=== PATIENT | female | born 1980 | race American Indian/Alaskan Native ===

== ENCOUNTER 2017-03-15 19:03 | Emergency (ER) | payer OTHER ==
[2017-03-15 20:37] LABS: Urine Drugs of Abuse Note Disclamer
[2017-03-15 20:46] LABS: Bilirubin,Urine NEG (Negative); Blood,Urine NEG (Negative); Ketones,Urine NEG (Negative); Leukocyte Esterase,Urine SM (Negative); Mucus,Urine FEW /HPF; Nitrite,Urine NEG (Negative); Protein,Urine <15 mg/dL mg/dL (Negative); Urobilinogen,Urine < 2.0 mg/dL (<2.0)
[2017-03-15 20:47] LABS: Basophils % (Auto) 0.2 % (0.0-1.8); Eosinophils % (Auto) 0.4 % (0.0-4.3); Hematocrit 39.1 % (30.3-42.9); Hemoglobin 12.8 gm/dl (10.1-14.3); Mean Corpuscular HGB Conc 33 % (30-34); Mean Corpuscular Hemoglobin 29 pg (28-32); Mean Corpuscular Volume 89 fl (79-97); Platelet Count 237 K/mm3 (140-440); Red Cell Distribution Width 14.8 % (13.2-15.2); White Blood Count 16.8 K/mm3 (4.5-11.0)
[2017-03-15 21:05] LABS: Anion Gap 21 mmol/L; BUN/Creatinine Ratio 12.85; Blood Urea Nitrogen 9 mg/dL (7-17); Calcium 10.1 mg/dL (8.4-10.2); Carbon Dioxide 21 mmol/L (22-30); Glucose 101 mg/dL (65-100); Potassium 3.7 mmol/L (3.6-5.0); Sodium 139 mmol/L (137-145)
[2017-03-16] MEDS ORDERED: ANTIVERT PO ONE (00:14)
[2017-03-16] MEDS ORDERED: NACL 0.9% 1000 ML 1,000 ML IV ONE (00:32)
--- NOTE | 2017-03-16 00:43 | Emergency Department Report ---
ED Dizziness HPI - General Chief Complaint: Dizziness Stated Complaint: LIGHTHEADED/ NEAR SYNCOPE Time Seen by Provider: 03/15/17 23:55 Source: patient Mode of arrival: Ambulatory Limitations: No Limitations - History of Present Illness Initial Comments: 36-year-old female with no significant past medical history presents to Hospital complaining of lightheadedness for last few days. Patient also complains of loss of energy, feeling drained, and left ear discomfort. Patient feels like her left ear is blocked that she needs to pop it like she is on a plane. Patient complaining of feeling like she is going to pass out but has been having intermittent episodes of feeling like she is moving. No pain, nausea, vomiting, fever reported. - Related Data Previous Rx's Medication Instructions Recorded Last Taken Type Meclizine [Antivert] 25 mg PO TID PRN #30 tablet 03/16/17 Unknown Rx Allergies Allergy/AdvReac Type Severity Reaction Status Date / Time No Known Allergies Allergy Unverified 03/15/17 20:13 ED Review of Systems ROS: Stated complaint: LIGHTHEADED/ NEAR SYNCOPE Other details as noted in HPI Comment: All other systems reviewed and negative Other: Constitutional: No fevers chills Eyes: No eye pain visual changes or discharge ENT: as per hpi Neck: Denies pain Respiratory: Denies cough wheezing shortness of breath at rest shortness of breath or exertion, orthopnea or PND Cardiovascular: Denies chest pain, palpitations, syncope GI: Denies abdominal pain, nausea, vomiting, diarrhea, constipation, melena hematochezia : Denies dysuria Musculoskeletal: Denies back pain Skin: Denies rash, lesions, erythema Neurologic: Denies headache, numbness, weakness Psychiatric: Denies suicidal ideation, hallucinations ED Past Medical Hx - Past Medical History Previous Medical History?: No - Surgical History Past Surgical History?: No - Social History Smoking Status: Never Smoker Substance Use Type: Alcohol - Medications Home Medications: Home Medications Medication Instructions Recorded Confirmed Last Taken Type Meclizine [Antivert] 25 mg PO TID PRN #30 tablet 03/16/17 Unknown Rx ED Physical Exam - General Limitations: No Limitations - Other Other exam information: General: No limitations, patient is alert in no acute distress Head exam: Atraumatic, normocephalic Eyes exam: Normal appearance, pupils equal reactive to light, extraocular movements intact ENT: Moist mucous membrane, normal oropharynx, TMs normal bilaterally with good light reflex. Vertigo/spinning sensation reproducible with head tilted to the left and posterior changes. Neck exam: Normal inspection, full range of motion, no meningismus nontender Respiratory exam: Clear to auscultation bilateral, no wheezes, rales, crackles Cardiovascular: Normal rate and rhythm, normal heart sounds Abdomen: Soft, nondistended, and nontender, with normal bowel sounds, no rebound, or guarding Extremity: Full range of motion normal inspection no deformity Back: Normal Inspection, full range of motion, no tenderness Neurologic: Alert, oriented x3, cranial nerves intact, no motor or sensory deficit [id number] function intact Psychiatric: normal affect, normal mood Skin: Warm, dry, intact ED Course Vital Signs 03/15/17 03/15/17 03/16/17 20:13 23:23 02:07 Temperature 98.6 F 98.1 F Pulse Rate 100 H 100 H 74 Respiratory 18 18 16 Rate Blood Pressure 141/102 157/95 Blood Pressure 141/102 136/86 [Right] O2 Sat by Pulse 100 100 100 Oximetry - Reevaluation(s) Reevaluation #1: 03/16/17 00:42 Patient has orthostatic vital signs with increase in her heart rate greater than 20 with standing. She also has symptoms of vertigo. She will be treated with normal saline and meclizine. ED Medical Decision Making - Lab Data Result diagrams: 03/15/17 20:34 03/15/17 20:34 Lab Results 03/15/17 03/15/17 03/15/17 Range/Units 20:30 20:30 20:34 WBC 16.8 H (4.5-11.0) K/mm3 RBC 4.40 (3.65-5.03) M/mm3 Hgb 12.8 (10.1-14.3) gm/dl Hct 39.1 (30.3-42.9) % MCV 89 (79-97) fl MCH 29 (28-32) pg MCHC 33 (30-34) % RDW 14.8 (13.2-15.2) % Plt Count 237 (140-440) K/mm3 Lymph % (Auto) 8.9 L (13.4-35.0) % [place] % (Auto) 7.8 H (0.0-7.3) % Eos % (Auto) 0.4 (0.0-4.3) % Baso % (Auto) 0.2 (0.0-1.8) % Lymph # 1.5 (1.2-5.4) K/mm3 [place] # 1.3 H (0.0-0.8) K/mm3 Eos # 0.1 (0.0-0.4) K/mm3 Baso # 0.0 (0.0-0.1) K/mm3 Seg Neutrophils % 82.7 H (40.0-70.0) % Seg Neutrophils # 13.9 H (1.8-7.7) K/mm3 Sodium (137-145) mmol/L Potassium (3.6-5.0) mmol/L Chloride (98-107) mmol/L Carbon Dioxide (22-30) mmol/L Anion Gap mmol/L BUN (7-17) mg/dL Creatinine (0.7-1.2) mg/dL Estimated GFR ml/min BUN/Creatinine Ratio % Glucose (65-100) mg/dL Calcium (8.4-10.2) mg/dL Urine Color Yellow (Yellow) Urine Turbidity Clear (Clear) Urine pH 5.0 (5.0-7.0) Ur Specific [place] 1.015 (1.003-1.030) Urine Protein <15 mg/dl (Negative) mg/dL Urine Glucose (UA) Neg (Negative) mg/dL Urine Ketones Neg (Negative) mg/dL Urine Blood Neg (Negative) Urine Nitrite Neg (Negative) Urine Bilirubin Neg (Negative) Urine Urobilinogen < 2.0 (<2.0) mg/dL Ur Leukocyte Esterase Sm (Negative) Urine WBC (Auto) 7.0 H (0.0-6.0) /HPF Urine RBC (Auto) 3.0 (0.0-6.0) /HPF U Epithel Cells (Auto) 1.0 (0-13.0) /HPF Urine Mucus Few /HPF Urine Opiates Screen Presumptive negative Urine Methadone Screen Presumptive negative Ur Barbiturates Screen Presumptive negative Ur Phencyclidine Scrn Presumptive negative Ur Amphetamines Screen Presumptive negative U Benzodiazepines Scrn Presumptive negative Urine Cocaine Screen Presumptive negative U Marijuana (THC) Screen Presumptive negative Drugs of Abuse Note Disclamer 03/15/17 Range/Units 20:34 WBC (4.5-11.0) K/mm3 RBC (3.65-5.03) M/mm3 Hgb (10.1-14.3) gm/dl Hct (30.3-42.9) % MCV (79-97) fl MCH (28-32) pg MCHC (30-34) % RDW (13.2-15.2) % Plt Count (140-440) K/mm3 Lymph % (Auto) (13.4-35.0) % [place] % (Auto) (0.0-7.3) % Eos % (Auto) (0.0-4.3) % Baso % (Auto) (0.0-1.8) % Lymph # (1.2-5.4) K/mm3 [place] # (0.0-0.8) K/mm3 Eos # (0.0-0.4) K/mm3 Baso # (0.0-0.1) K/mm3 Seg Neutrophils % (40.0-70.0) % Seg Neutrophils # (1.8-7.7) K/mm3 Sodium 139 (137-145) mmol/L Potassium 3.7 (3.6-5.0) mmol/L Chloride 101.0 (98-107) mmol/L Carbon Dioxide 21 L (22-30) mmol/L Anion Gap 21 mmol/L BUN 9 (7-17) mg/dL Creatinine 0.7 (0.7-1.2) mg/dL Estimated GFR > 60 ml/min BUN/Creatinine Ratio 12.85 % Glucose 101 H (65-100) mg/dL Calcium 10.1 (8.4-10.2) mg/dL Urine Color (Yellow) Urine Turbidity (Clear) Urine pH (5.0-7.0) Ur Specific [place] (1.003-1.030) Urine Protein (Negative) mg/dL Urine Glucose (UA) (Negative) mg/dL Urine Ketones (Negative) mg/dL Urine Blood (Negative) Urine Nitrite (Negative) Urine Bilirubin (Negative) Urine Urobilinogen (<2.0) mg/dL Ur Leukocyte Esterase (Negative) Urine WBC (Auto) (0.0-6.0) /HPF Urine RBC (Auto) (0.0-6.0) /HPF U Epithel Cells (Auto) (0-13.0) /HPF Urine Mucus /HPF Urine Opiates Screen Urine Methadone Screen Ur Barbiturates Screen Ur Phencyclidine Scrn Ur Amphetamines Screen U Benzodiazepines Scrn Urine Cocaine Screen U Marijuana (THC) Screen Drugs of Abuse Note - EKG Data -: EKG Interpreted by Me (sinus rate 84 with sinus arrhythmia) - EKG Data When compared to previous EKG there are: previous EKG unavailable - Medical Decision Making Patient does report mild improvement with ED treatment. Feels well enough to go home. Although patient does have a leukocytosis there are no active signs of infection reported. TM visualized and without erythema and have a good light reflex. She will be treated for vertigo with follow-up encouraged. - Differential Diagnosis peripheral versus central vertigo, dehydration, anemia, infection Critical Care Time: No Critical care attestation.: If time is entered above; I have spent that time in minutes in the direct care of this critically ill patient, excluding procedure time. ED Disposition Clinical Impression: Vertigo Disposition: DISCHARGED TO HOME OR SELFCARE Is pt being admited?: No Does the pt Need Aspirin: No Condition: Stable Instructions: Vertigo (ED) Additional Instructions: Take the medication as prescribed. Return if symptoms worsen. Follow-up with your primary care doctor and the ENT doctor provided Prescriptions: Meclizine [Antivert] 25 mg PO TID PRN #30 tablet PRN Reason: Vertigo Referrals: STEPH AMAYA MD [Primary Care Provider] - 3-5 Days ADRIANNA PINA MD [Staff Physician] - 3-5 Days (ENT doctor) Time of Disposition: 02:14
[2017-03-16 02:09] VITALS: BP 136/86
== END 2017-03-16 02:31 | disposition home or self-care (01) ==
LOC: ED 19:03
DX: R42 Dizziness and giddiness (principal)
CPT/HCPCS: 36415; 80048; 80307; 81001; 85025; 93005; 93010; 96360; 99283; J7030

== ENCOUNTER 2017-06-13 23:11 | Emergency (ER) | payer OTHER ==
[2017-06-13] MEDS ORDERED: ZOFRAN IV ONE (23:37)
[2017-06-13] MEDS ORDERED: NACL 0.9% 1000 ML 1,000 ML IV ONE (23:37)
[2017-06-13] MEDS ORDERED: MORPHINE IV ONE (23:37)
--- NOTE | 2017-06-13 23:44 | Emergency Department Report ---
ED HPI - General Chief complaint: Vaginal Bleeding Stated complaint: ABD PAIN/PREG 10WKS 5DAYS Time Seen by Provider: 06/13/17 23:37 Source: patient Mode of arrival: Ambulatory Limitations: No Limitations - History of Present Illness Initial comments: 36-year-old female presents to the emergency department complaining of pelvic cramping and vaginal bleeding. Patient states she began having cramps in the pelvis approximate 4 PM today. The cramping has been constant and has gotten worse since onset. She states approximately 2 hours ago she began having vaginal spotting, and one hour ago the bleeding became much heavier. She reports feeling lightheaded, but has not passed out. Patient is currently 10 weeks , . There are no other complaints. MD Complaint: abdominal pain, vaginal bleeding -: Sudden, This afternoon Time: 16:00 Location: pelvis Radiation: none Severity: severe Severity scale (0 -10): 10 Quality: cramping Consistency: constant Improves with: none Worsens with: none Associated symptoms: vaginal bleeding Vaginal bleeding: heavy, clots :: Yes Number of weeks : 10 OB History - Current : no complications Pre-artie care: followed by OB - Related Data : 1 Para: 0 Home Medications Medication Instructions Recorded Confirmed Last Taken Caplet 1 cap PO DAILY 06/13/17 06/13/17 Unknown Previous Rx's Medication Instructions Recorded Last Taken Type HYDROcodone/APAP 5-325 [Cross 1 each PO Q6HR PRN #30 tablet 06/14/17 Unknown Rx 5/325] Allergies Allergy/AdvReac Type Severity Reaction Status Date / Time No Known Allergies Allergy Unverified 03/15/17 20:13 ED Review of Systems ROS: Stated complaint: ABD PAIN/PREG 10WKS 5DAYS Other details as noted in HPI Comment: All other systems reviewed and negative Genitourinary: as per HPI (pelvic pain, vaginal bleeding) ED Past Medical Hx - Past Medical History Previous Medical History?: No - Surgical History Past Surgical History?: No - Family History Family history: no significant - Social History Smoking Status: Never Smoker Substance Use Type: None - Medications Home Medications: Home Medications Medication Instructions Recorded Confirmed Last Taken Type Caplet 1 cap PO DAILY 06/13/17 06/13/17 Unknown History HYDROcodone/APAP 5-325 [Cross 1 each PO Q6HR PRN #30 tablet 06/14/17 Unknown Rx 5/325] ED Physical Exam - General Limitations: No Limitations General appearance: alert, in no apparent distress - Head Head exam: Present: atraumatic, normocephalic - Eye Eye exam: Present: normal appearance, PERRL, EOMI - ENT ENT exam: Present: normal exam, normal orophraynx, mucous membranes moist - Neck Neck exam: Present: normal inspection, full ROM. Absent: tenderness - Respiratory Respiratory exam: Present: normal lung sounds bilaterally. Absent: respiratory distress - Cardiovascular Cardiovascular Exam: Present: regular rate, normal rhythm, normal heart sounds - GI/Abdominal GI/Abdominal exam: Present: soft, tenderness (moderate suprapubic tenderness to palpation). Absent: distended, guarding, rebound - Extremities Exam Extremities exam: Present: normal inspection, full ROM. Absent: tenderness - Back Exam Back exam: Present: normal inspection, full ROM. Absent: tenderness - Neurological Exam Neurological exam: Present: alert, oriented X3. Absent: motor sensory deficit - Skin Skin exam: Present: warm, dry, intact ED Course Vital Signs 06/13/17 06/14/17 06/14/17 23:21 00:00 00:03 Temperature 97.4 F L Pulse Rate 91 H 90 Respiratory 20 18 18 Rate Blood Pressure 98/59 Blood Pressure 98/59 [Left] Blood Pressure 129/86 [Right] O2 Sat by Pulse 100 Oximetry 06/14/17 06/14/17 00:11 02:53 Temperature Pulse Rate 81 Respiratory 22 12 Rate Blood Pressure Blood Pressure [Left] Blood Pressure 112/68 [Right] O2 Sat by Pulse 99 Oximetry ED Medical Decision Making - Lab Data Result diagrams: 06/13/17 23:52 - Radiology Data Radiology results: report reviewed ultrasound reveals a nonviable intrauterine with no cardiac activity. - Medical Decision Making Lab and imaging results reviewed and discussed with the patient. Patient will be discharged home at this time to follow up with her [employer]. - Differential Diagnosis threatened , inevitable , ectopic Critical care attestation.: If time is entered above; I have spent that time in minutes in the direct care of this critically ill patient, excluding procedure time. ED Disposition Clinical Impression: Spontaneous Disposition: DC-01 TO HOME OR SELFCARE Is pt being admited?: No Condition: Stable Instructions: Spontaneous Miscarriage (ED) Prescriptions: HYDROcodone/APAP 5-325 [Cross 5/325] 1 each PO Q6HR PRN #30 tablet PRN Reason: Pain Referrals: PRIMARY CARE,MD [Primary Care Provider] - 3-5 Days Time of Disposition: 03:29
[2017-06-14 00:10] LABS: Hematocrit 35.6 % (30.3-42.9); Hemoglobin 11.7 gm/dl (10.1-14.3); Mean Corpuscular HGB Conc 33 % (30-34); Mean Corpuscular Hemoglobin 30 pg (28-32); Mean Corpuscular Volume 91 fl (79-97); Platelet Count 263 K/mm3 (140-440); Red Blood Count 3.92 M/mm3 (3.65-5.03); Red Cell Distribution Width 14.4 % (13.2-15.2)
[2017-06-14 00:16] LABS: White Blood Count 22.8 K/mm3 (4.5-11.0)
--- NOTE | 2017-06-14 02:28 | Ultrasound Report ---
FINAL REPORT PROCEDURE: US OB TRANSVAGINAL TECHNIQUE: Real-time transvaginal sonography of the uterus, placenta, amniotic fluid, adnexa, and fetus was performed with image documentation. Measurements were obtained to determine age/size. M-mode Doppler was used to document heartbeat. CPT 55186 HISTORY: 10 weeks , vaginal bleeding, pelvic pain COMPARISON: No prior studies are available for comparison. FINDINGS: CRL: 10.4mm, which corresponds to a gestational age of: 7weeks, 1 days. Yolk Sac: Normal. Embryonic Cardiac Activity: Not detected Gestational Sac: Normal. Right Ovary: Normal. Left Ovary: Normal. Estimated delivery date: 01/30/2018 Comment: Complete anatomic survey at 18-20 weeks suggested. IMPRESSION: Nonviable at 7 weeks and 1 day. There is no cardiac activity.
--- NOTE | 2017-06-14 02:29 | Ultrasound Report ---
FINAL REPORT PROCEDURE: US OB TRANSABDOMINAL TECHNIQUE: Real-time transabdominal sonography of the uterus, placenta, amniotic fluid, adnexa, and fetus was performed with image documentation. Measurements were obtained to determine age/size. M-mode Doppler was used to document heartbeat. CPT 37058 HISTORY: 10 weeks , vaginal bleeding, pelvic pain COMPARISON: No prior studies are available for comparison. FINDINGS: CRL: 10.4mm, which corresponds to a gestational age of: 7weeks, 1 days. Yolk Sac: Normal. Embryonic Cardiac Activity: Not detected Gestational Sac: Normal. Right Ovary: Normal. Left Ovary: Normal. Estimated delivery date: 01/30/2018 Comment: Complete anatomic survey at 18-20 weeks suggested. IMPRESSION: Nonviable at 7 weeks and 1 day. There is no cardiac activity.
[2017-06-14 02:31] LABS: Bilirubin,Urine Negative (Negative); Blood,Urine Large (Negative); Ketones,Urine Negative (Negative); Leukocyte Esterase,Urine Negative (Negative); Nitrite,Urine Negative (Negative); Protein,Urine 300 mg/dL mg/dL (Negative); Urobilinogen,Urine 0.2 mg/dL (<2.0)
[2017-06-14 02:39] LABS: Blastocytes % (Manual) 0 %
[2017-06-14 02:40] LABS: Anisocytosis Few; Basophils % (Manual) 0 % (0.0-1.8); Diff Status Complete; Eosinophils % (Manual) 0 % (0.0-4.3)
[2017-06-14] MEDS ORDERED: DILAUDID IV ONE (02:58)
[2017-06-14 03:46] VITALS: BP 121/72
== END 2017-06-14 03:49 | disposition home or self-care (01) ==
LOC: ED 23:11
DX: O03.9 Complete or unspecified spontaneous abortion without complication (principal); Z3A.10 10 weeks gestation of pregnancy
CPT/HCPCS: 36415; 76801; 76817; 81001; 84702; 85007; 85025; 86850; 86900; 86901; 96361; 96374; 96375; 99284; J1170; J2270; J2405; J7030